=== PATIENT | female | born 1985 | race Caucasian/White ===

== ENCOUNTER 2017-10-13 00:52 | Emergency (ER) | payer MEDICAID ==
[~2017-10-13] VITALS: Ht 165.1 cm; Wt 77.1 kg
[2017-10-13 01:10] VITALS: BP 148/101
== END 2017-10-13 06:31 | disposition left against medical advice (07) ==
LOC: ER 01:06
DX: R51 Headache (principal); M54.9 Dorsalgia, unspecified; Z53.21 Procedure and treatment not carried out due to patient leaving prior to being seen by health care provider